=== PATIENT | female | born 1995 | race Caucasian/White ===

== ENCOUNTER 2020-12-13 09:35 | Emergency (ER) | payer OTHER, SELFPAY ==
--- NOTE | ~2020-12-13 | US_ITS ---
EXAMINATION: US OB <=14 wk fetus w TV DATE: 12/13/2020 12:06 INDICATION: First trimester vaginal bleeding. TECHNIQUE: Real-time transabdominal and transvaginal pelvic ultrasound was performed. COMPARISON: None. FINDINGS: TRANSABDOMINAL ULTRASOUND: The uterus measures 8.4 x 4.7 x 4.5 cm. TRANSVAGINAL ULTRASOUND: The endometrial complex measures 9 mm in thickness. There is no visible intr auterine gestational sac. The right ovary measures 4.7 x 3.3 x 1.9 cm. The left ovary is not visualiz ed. There is no free fluid in the pelvis. IMPRESSION: 1. No visible intrauterine gestational sac, which may be normal in early . Spontaneous abor tion and ectopic are not excluded. Serial beta-hCGs are recommended. Reviewed, dictated and finalized at location A. IMPRESSION: 1. No visible intrauterine gestational sac, which may be normal in early pregn ponce. Spontaneous and ectopic are not excluded. Serial beta- hCGs are recommended.
[2020-12-13 09:51] VITALS: BP 124/75; PULSE 96; RESP 17; TEMP 36.6; O2SAT 96
[2020-12-13 11:07] LABS: Alanine Aminotransferase 20 U/L (4-35); Albumin Level 4.5 g/dL (3.5-5.1); Alkaline Phosphatase 86 U/L (38-126); Anion Gap 11 mmol/L (8-16); Aspartate Amino Transferase 26 U/L (14-36); Bilirubin,Total 0.4 mg/dL (0.2-1.3); Blood Urea Nitrogen 6 mg/dL (7-17); Calcium 9.5 mg/dL (8.4-10.2); Carbon Dioxide 22 mmol/L (22-30); Chloride 104 mmol/L (98-107); Estimated CRCL calculation 139 ml/min; Estimated Glomerular Filt Rate > 60; Glucose 102 mg/dL (65-105); Potassium 3.7 mmol/L (3.4-5.0); Sodium 137 mmol/L (137-145)
[2020-12-13 11:23] LABS: Beta HCG Quantitative 48.86 mIU/ML
--- NOTE | 2020-12-13 12:43 | ED.GENADULT ---
HPI - General Adult General Chief complaint: Unspecified Stated complaint: SENT TO ED FOR OB U/S Time Seen by Provider: 12/13/20 09:43 History of Present Illness HPI narrative: Patient is a 25-year-old female who presents ER with concerns for abnormal . Patient reports on 12/10/2020 she had some vaginal bleeding. She went to [facility] on 12/11 and underwent blood testing but had no ultrasound. She reports her blood level was 56 and she is supposed to follow-up with Dr. Rao. She contacted the office today and they recommended she come to the ER for an ultrasound. Patient reports she has had no additional bleeding. She believes her blood type is AB+. She reports she did not get a RhoGam shot. Patient is a G3, P1 and has history of ectopic . Related Data Allergies Allergy/AdvReac Type Severity Reaction Status Date / Time morphine Allergy Hives Verified 12/13/20 09:58 tree nut Allergy Anaphylactic Verified 12/13/20 09:58 Shock Review of Systems Review of Systems: All systems reviewed & are unremarkable except as noted in HPI and below Constitutional: Constitutional: Denies chills and Denies fever(s) Gastrointestinal: Gastrointestinal: Denies abdominal pain, Denies diarrhea, Denies nausea and Denies vomiting Genitourinary: Genitourinary: Reports abnormal vaginal bleeding, Denies nocturia, Denies dysuria, Denies urinary urgency and Denies vaginal discharge PMFSH Past Medical History Medical History (Updated 12/13/20 @ 13:24 by Juarez Barry MD) Bipolar disorder Borderline personality disorder Surgical History Surgical History (Updated 12/13/20 @ 12:46 by Juarez Barry MD) No pertinent past surgical history Exam Narrative: Exam Narrative: GENERAL: Well-appearing, well-nourished, and in no acute distress. HEAD: Normocephalic, atraumatic. ENT: Mucous membranes moist. CHEST: Clear to auscultation. No respiratory distress. HEART: Regular rate and rhythm. Normal peripheral pulses. ABDOMEN: Soft, nontender, nondistended. EXTREMITIES: Normal range of motion. No edema. SKIN: Warm, dry, no rash. NEURO: Alert and oriented x3. PSYCH: Normal mood and affect. Course Course Emergency Course: I spoke with Dr. Taylor who has knowledge about this patient as she was the physician who was called from [place]. She reports she just wanted patient to have follow-up beta-hCG today instead of ultrasound. Now that she has both she would like patient to follow-up in clinic so they can discuss what she feels is an abnormally developing . Patient has been educated on this and verbalized understanding. Vital Signs Vital signs: Vital Signs Temperature 97.8 F 12/13/20 09:51 Pulse Rate 96 12/13/20 09:51 Respiratory Rate 17 12/13/20 09:51 Blood Pressure 124/75 12/13/20 09:51 Pulse Oximetry 96 12/13/20 09:51 Temperature 97.8 F 12/13/20 09:51 Pulse Rate 72 12/13/20 12:49 Respiratory Rate 18 12/13/20 12:49 Blood Pressure 145/87 H 12/13/20 12:49 Pulse Oximetry 100 12/13/20 12:49 Medical Decision Making Vital Signs Vital Signs: Vital Signs Temperature 97.8 F 12/13/20 09:51 Pulse Rate 96 12/13/20 09:51 Respiratory Rate 17 12/13/20 09:51 Blood Pressure 124/75 12/13/20 09:51 Pulse Oximetry 96 12/13/20 09:51 Temperature 97.8 F 12/13/20 09:51 Pulse Rate 72 12/13/20 12:49 Respiratory Rate 18 12/13/20 12:49 Blood Pressure 145/87 H 12/13/20 12:49 Pulse Oximetry 100 12/13/20 12:49 Lab Data Result diagrams: 12/13/20 10:46 Labs: Lab Results 12/13/20 Range/Units 10:46 Sodium 137 (137-145) mmol/L Potassium 3.7 (3.4-5.0) mmol/L Chloride 104 (98-107) mmol/L Carbon Dioxide 22 (22-30) mmol/L Anion Gap 11 (8-16) mmol/L BUN 6 L (7-17) mg/dL Creatinine 0.60 L (0.7-1.0) mg/dL Estim Creat Clear Calc 139 ml/min Estimated GFR > 60 (59 - ) Glucose 102 (65-105)
[2020-12-13 12:49] VITALS: BP 145/87; PULSE 72; RESP 18; O2SAT 100
--- NOTE | 2020-12-23 01:45 | PC.NURSE ---
Addendum entered by Fidel Mccurdy RN 12/23/20 01:58: THIS NOTE SHOULD BE CHARTED ON VISIT [id number] Original Note: Spoke with Pharmacist Kartik. Methotrexate will be available at 0630 AM when med can be verified. Pt advised and states she will stay till AM. Transferred to room 114 ambulatory. Applears comfortable at this time.
== END 2020-12-13 13:40 | disposition home or self-care (01) ==
PROVIDERS: Emergency Provider Emergency Medicine
DX: O20.0 Threatened abortion (principal); Z3A.00 Weeks of gestation of pregnancy not specified
CPT/HCPCS: 36415; 76801; 76817; 80053; 81025; 84702; 99284

== ENCOUNTER 2020-12-22 21:47 | Outpatient (CLI) | payer OTHER, SELFPAY ==
--- NOTE | 2020-12-22 21:47 | PC.NURSE ---
Pt here for Methotrexate injection. Pt states she has had increasing elevation of HCG levels with no per ultrasound.
--- NOTE | 2020-12-22 22:40 | PC.NURSE ---
Pt states she has pain rated as 3-4 in left lower quadrant of abdomen which is improved with leaning forward. Dr. Taylor advised.
[2020-12-22 23:02] VITALS: BMI 41.1
--- NOTE | 2020-12-22 23:20 | PC.NURSE ---
Awaiting lab results. Order faces to pharmacy.
[2020-12-22 23:37] LABS: Alanine Aminotransferase 36 U/L (4-35); Albumin Level 4.6 g/dL (3.5-5.1); Alkaline Phosphatase 75 U/L (38-126); Anion Gap 11 mmol/L (8-16); Aspartate Amino Transferase 38 U/L (14-36); Bilirubin,Total 0.4 mg/dL (0.2-1.3); Blood Urea Nitrogen 10 mg/dL (7-17); Carbon Dioxide 25 mmol/L (22-30); Chloride 104 mmol/L (98-107); Estimated CRCL calculation 107 ml/min; Estimated Glomerular Filt Rate > 60; Glucose 89 mg/dL (65-110); Potassium 3.6 mmol/L (3.4-5.0); Sodium 140 mmol/L (137-145)
--- NOTE | 2020-12-23 01:45 | PC.NURSE ---
Spoke with Pharmacist Kartik. Methotrexate will be available at 0630 AM when med can be verified. Pt advised and states she will stay till AM. Transferred to room 114 ambulatory. Radhika comfortable at this time.
--- NOTE | 2020-12-23 02:03 | PC.NURSE ---
Addendum entered by Fidel Mccurdy RN 12/23/20 02:07: SEE [id number] note. Original Note: Pt here for methotrexate injection. Pt states she has had elevating HCG levels despite negative ultrasounds.
[2020-12-23] MEDS: METHOTREXATE SODIUM/PF 50 MG/2 ML VIAL 100 MG IM (03:04)
--- NOTE | 2020-12-23 03:04 | PC.NURSE ---
Methotrexate 50 mg given x2. (100 mg in divided doses) Left and right Ventrogluteal.
--- NOTE | 2020-12-23 04:03 | PC.NURSE ---
Pt given copy of consent for instructions.Reviewed instructions and verbalized understanding. Pt instructed not to bedcome . Pt states she does not plan to become and will be starting on control.
== END 2020-12-23 03:30 | disposition home or self-care (01) ==
LOC: ANHOBOP 21:51 → ANHLDR 12-27 06:43
PROVIDERS: Visit Provider Obstetrics & Gynecology
DX: D03.4 Melanoma in situ of scalp and neck (principal)
CPT/HCPCS: 36415; 80053; 96372; 99199; J9260

== ENCOUNTER 2020-12-30 15:52 | Outpatient (CLI) | payer OTHER, SELFPAY ==
[2020-12-30 16:26] LABS: Basophils Percent Auto 0.4 % (0.2-1.2); Eosinophils Absolute Auto 0.1 K/mm3 (0-0.3); Eosinophils Percent Auto 0.8 % (0-4.4); Hematocrit 40.7 % (37.0-47.0); Hemoglobin 13.7 g/dL (12.0-15.0); Immature Granulocyte Absolute 0.02 K/mm3 (0.00-0.031); Immature Granulocyte Percent A 0.2 % (0-0.5); Lymphocytes Absolute Auto 1.98 K/mm3 (0.9-3.2); Lymphocytes Percent Auto 23.9 % (18.3-44.2); Mean Corpuscular HGB Conc 33.7 g/dl (32-36); Mean Corpuscular Hemoglobin 30.8 pg (26-34); Mean Corpuscular Volume 91.5 fl (80-100); Mean Platelet Volume 10.8 fl (7.4-10.4); Monocytes Absolute Auto 0.4 K/mm3 (0.1-0.6); Monocytes Percent Auto 5.3 % (2.6-8.5); Neutrophils Absolute Auto 5.7 K/mm3 (1.3-6.7); Neutrophils Percent Auto 69.4 % (45.5-73.1); Platelet Count Result 215 k/mm3 (150-375); Red Blood Count 4.45 M/mm3 (4.2-5.4); Red Cell Distribution Width 13.2 % (11.5-14.5); White Blood Count 8.3 K/mm3 (4.5-10.0)
[2020-12-30 16:36] LABS: Alanine Aminotransferase 20 U/L (4-35); Albumin Level 4.5 g/dL (3.5-5.1); Alkaline Phosphatase 70 U/L (38-126); Anion Gap 10 mmol/L (8-16); Aspartate Amino Transferase 22 U/L (14-36); Bilirubin,Total 0.5 mg/dL (0.2-1.3); Blood Urea Nitrogen 6 mg/dL (7-17); Calcium 9.5 mg/dL (8.4-10.2); Carbon Dioxide 22 mmol/L (22-30); Chloride 107 mmol/L (98-107); Estimated CRCL calculation 163 ml/min; Estimated Glomerular Filt Rate > 60; Glucose 110 mg/dL (65-110); Potassium 3.7 mmol/L (3.4-5.0); Sodium 139 mmol/L (137-145)
[2020-12-30] MEDS: METHOTREXATE SODIUM/PF 50 MG/2 ML VIAL IM ×2 (17:11→17:13)
== END 2020-12-30 17:20 | disposition home or self-care (01) ==
LOC: ANHOBOP 15:58 → ANHLDR 15:59
PROVIDERS: Visit Provider Obstetrics & Gynecology
DX: O36.0190 Maternal care for anti-D [Rh] antibodies, unspecified trimester, not applicable or unspecified (principal); O03.4 Incomplete spontaneous abortion without complication; Z3A.00 Weeks of gestation of pregnancy not specified
CPT/HCPCS: 36415; 80053; 84702; 85025; 96372; 99199; J9260

== ENCOUNTER 2021-09-23 09:11 | Outpatient (CLI) | payer OTHER, SELFPAY | END 2021-09-23 09:12 | disposition home or self-care (01) | LOC: ANHAUDIO 09:11 | PROVIDERS: Visit Provider Otolaryngology | DX: H90.3 Sensorineural hearing loss, bilateral (principal) | CPT/HCPCS: 92557; 92567 ==

== ENCOUNTER 2024-02-19 20:20 | Emergency (ER) | payer OTHER, SELFPAY ==
--- NOTE | ~2024-02-19 | XR_ITS ---
EXAM: XR tibia fibula LT 2V DATE: 02/19/2024 22:27 HISTORY: fall, injury . COMPARISON: None available. FINDINGS: Normal mineralization. No fracture or dislocation. No lytic or blastic lesion. Joint space s are maintained. Mild enthesopathy at the patellar tendon insertion. Mild Achilles enthesopathy. No erosion or periosteal change. Soft tissue contusion over the anterior tibia. IMPRESSION: No acute osseous finding in the left tibia/fibula. Reviewed, dictated and finalized at location K.
[2024-02-19 21:12] VITALS: BP 143/81; PULSE 97; RESP 16; TEMP 36.5; O2SAT 99
--- NOTE | 2024-02-19 22:36 | ED.LOWEXIN ---
HPI - Extremity Injury (Lower) General Chief Complaint: Extremity Injury, Lower Stated Complaint: leg injury, fall Time Seen by Provider: 02/19/24 22:09 Source: patient Mode of arrival: ambulatory Limitations: no limitations History of Present Illness HPI Narrative: this is a 28-year-old female that presents to the emergency department after a fall 5 days ago with left lower leg pain. Reports she tripped down about 3 stairs. She did not hit her head or lose consciousness. Reports bruising and pain to the left lower leg. Denies decreased range of motion or numbness Related Data Home Medications Medication Instructions Recorded Confirmed albuterol sulfate 90 mcg/actuation inhalation 12/23/20 09/08/21 aerosol inhaler lamotrigine 150 mg tablet 150 mg PO DAILY 12/23/20 09/08/21 quetiapine 100 mg tablet 100 mg PO DAILY 12/23/20 09/08/21 sertraline 25 mg tablet mg 12/23/20 09/08/21 sertraline 50 mg tablet 50 mg PO DAILY 12/23/20 09/08/21 Allergies Allergy/AdvReac Type Severity Reaction Status Date / Time morphine Allergy Hives Verified 02/19/24 21:12 tree nut Allergy Anaphylactic Verified 02/19/24 21:12 Shock Review of Systems Review of Systems: CONSTITUTIONAL: Denies fever MUSCULOSKELETAL: Reports myalgia. All systems reviewed & are unremarkable except as noted in HPI and below PMFSH Past Medical History Medical History Asthma Bipolar disorder Borderline personality disorder Ectopic fetus 2017 Hypertension Surgical History Surgical History No pertinent past surgical history Family History Family History (Updated 05/22/22 @ 09:54 by Cierra Shannon MA) Other Cerebrovascular accident Diabetes mellitus Heart disease Malignant lung neoplasm Myocardial infarction Social History Social History (Updated 11/22/22 @ 14:34 by CROW Small) Smoking status: Never smoker Alcohol intake: current Drinks per week: 2 Substance use: current Substance use type: marijuana Other substance usage details: every other day Lack of Transportation: No Lack of Food: Sometimes True Current Housing: I Have Housing Concerned About Future Housing: No Difficulty Paying Gas/Electric Bills: No Difficulty Paying for Meds: No Currently Unemployed: No Education: High School Diploma/GED Difficulty w/ Childcare or Family Care: No Living arrangements: other Additional living arrangements comments: Occupation/Education: occupation Additional occupation/education comments: dancer / stripper Gender identity (if verbalized by the patient): Female Sexual Orientation (if Verbalized by the Patient): Bisexual Exam Narrative: GENERAL: Well-appearing, well-nourished, and in no acute distress. HEAD: Normocephalic, atraumatic. EYES: EOMI. EXTREMITIES: Normal range of motion. Mild bruising to the left lower leg anteriorly. Normal DP pulse. Normal capillary refill. Compartments are soft SKIN: Warm, dry, no rash. NEURO: No focal deficits. Alert and oriented x3. PSYCH: Normal mood and affect Course Course Emergency Course: patient updated on workup and agrees with plan of care. Vital Signs Vital signs: Vital Signs Temperature 97.7 F 02/19/24 21:12 Pulse Rate 97 02/19/24 21:12 Respiratory Rate 16 02/19/24 21:12 Blood Pressure 143/81 H 02/19/24 21:12 Pulse Oximetry 99 02/19/24 21:12 Oxygen Delivery Room Air 02/19/24 21:12 Temperature 97.7 F 02/19/24 21:12 Pulse Rate 97 02/19/24 21:12 Respiratory Rate 16 02/19/24 21:12 Blood Pressure 143/81 H 02/19/24 21:12 Pulse Oximetry 99 02/19/24 21:12 Oxygen Delivery Room Air 02/19/24 21:12 MDM - Extremity Injury (Lower) MDM Narrative Medical decision making narrative: Patient presents to the ER for left lower leg injury. She is neurologically
[2024-02-19 23:01] VITALS: BP 136/84; PULSE 86; RESP 16; TEMP 36.7; O2SAT 98
== END 2024-02-19 23:07 | disposition home or self-care (01) ==
PROVIDERS: Emergency Provider Physician Assistant
DX: S80.12XA Contusion of left lower leg, initial encounter (principal); J45.909 Unspecified asthma, uncomplicated; I10 Essential (primary) hypertension; F31.9 Bipolar disorder, unspecified; F60.3 Borderline personality disorder; Z79.899 Other long term (current) drug therapy; W10.9XXA Fall (on) (from) unspecified stairs and steps, initial encounter
CPT/HCPCS: 73590; 99283